=== PATIENT | female | born 1985 | race Caucasian/White ===

== ENCOUNTER 2017-04-01 13:29 | Emergency (ER) | payer MEDICAID ==
[~2017-04-01] VITALS: Ht 157.5 cm; Wt 79.3 kg
[~2017-04-01 13:29] MED LIST: SERT50TA PO; TRAZ100T15 PO
[2017-04-01 13:31] VITALS: BP 154/93
[2017-04-01] MEDS ORDERED: CEFTRIAXONE PMX 1GM/50ML 50 ML IVPB ONE (14:00)
[2017-04-01] MEDS ORDERED: SODIUM CHLORIDE FLUSH 10ML SYR IVF ONE (14:00)
[2017-04-01] MEDS ORDERED: ONDANSETRON 2MG/ML, 2ML IVPush ONE (14:00)
[2017-04-01] MEDS ORDERED: HYDROmorphone 1 MG/ML, 1ML ONE ×3 (14:02→16:02)
[2017-04-01] MEDS ORDERED: ONDANSETRON 2MG/ML, 2ML ONE (14:02)
[2017-04-01] MEDS ORDERED: CEFTRIAXONE PMX 1GM/50ML 50 ML ONE (14:02)
[2017-04-01] MEDS: HYDROmorphone 1 MG/ML, 1ML IVPush PRN ×2 (14:15→15:23)
[2017-04-01 14:38] LABS: BLOOD UREA NITROGEN 5 mg/dL (7-18)
[2017-04-01] MEDS ORDERED: BACITRACIN ZINC OINT 500U/GM, 0.9 GM ONE ×2 (14:53)
[2017-04-01] MEDS ORDERED: HYDROmorphone 1 MG/ML, 1ML IVPush PRN (15:00)
[2017-04-01] MEDS ORDERED: BACITRACIN OINT 500U/GM, 15 GM TP ONE (15:00)
[2017-04-01] MEDS ORDERED: POTASSIUM CHLORIDE 20 MEQ TAB.ER.PRT PO ONE (15:30)
[2017-04-01] MEDS ORDERED: POTASSIUM CHLORIDE 20 MEQ TAB.ER.PRT ONE (16:02)
== END 2017-04-01 17:11 | disposition home or self-care (01) ==
LOC: ED 17:01
DX: L01.01 Non-bullous impetigo (principal); F15.10 Other stimulant abuse, uncomplicated
CPT/HCPCS: 36415; 80048; 82040; 83605; 85025; 87040; 96365; 96375; 96376; 99284; J0696; J1170; J2405

== ENCOUNTER 2017-04-20 23:21 | Emergency (ER) | payer MEDICAID ==
[~2017-04-20] VITALS: Ht 167.6 cm; Wt 90.0 kg
[2017-04-20] MEDS ORDERED: SODIUM CHLORIDE 0.9% 1,000ML IVBOLUS ONE (23:30)
[2017-04-21] MEDS ORDERED: ZIPRASIDONE 20 MG INJ IM ONE ×4 (00:30→01:00)
[2017-04-21] MEDS ORDERED: DIPHENHYDRAMINE 50 MG/ML, 1ML ONE (00:58)
[2017-04-21] MEDS ORDERED: LORazepam 2 MG/ML, 1ML ONE (00:59)
[2017-04-21] MEDS ORDERED: LORazepam 2 MG/ML, 1ML IM ONE (01:00)
[2017-04-21 01:51] LABS: HEMATOCRIT 44.7 % (34.6-47.8); HEMOGLOBIN 14.4 g/dL (11.7-16.4); WHITE BLOOD COUNT 6.5 x10^3/uL (3.4-10)
[2017-04-21 02:01] LABS: ASPARTATE AMINO TRANSFERASE 22 U/L (15-37); BLOOD UREA NITROGEN 2 mg/dL (7-18)
[2017-04-21 02:08] LABS: ACETAMINOPHEN < 2 mcg/mL (10-30)
[2017-04-21 05:32] VITALS: BP 118/78
== END 2017-04-21 06:07 | disposition home or self-care (01) ==
LOC: ED 23:59
DX: F19.150 Other psychoactive substance abuse with psychoactive substance-induced psychotic disorder with delusions (principal); F22 Delusional disorders; F23 Brief psychotic disorder; F31.9 Bipolar disorder, unspecified; S00.81XA Abrasion of other part of head, initial encounter; X58.XXXA Exposure to other specified factors, initial encounter; Y93.89 Activity, other specified; Y99.8 Other external cause status; Y92.89 Other specified places as the place of occurrence of the external cause
CPT/HCPCS: 36415; 70450; 80053; 80307; 80329; 84703; 85025; 96372; 99291; J2060; J3486; G0480

== ENCOUNTER 2018-04-10 10:03 | Emergency (ER) | payer MEDICAID ==
[~2018-04-10] VITALS: Ht 157.5 cm; Wt 96.5 kg
[~2018-04-10 10:03] MED LIST changes: +TRAZ-137 PO; -TRAZ100T15 PO
[2018-04-10 10:26] VITALS: BP 119/75
[2018-04-10 12:06] LABS: MICROSCOPIC NOT IND
[2018-04-10 12:12] LABS: BASOPHILS # (AUTO) 0.02 x10^3/uL (0-0.1); BASOPHILS % (AUTO) 0 % (0-1); EOSINOPHILS # (AUTO) 0.09 x10^3/uL (0-0.4); EOSINOPHILS % (AUTO) 1 % (1-7); LYMPHOCYTES # (AUTO) 2.09 x10^3/uL (1-3.4); LYMPHOCYTES % (AUTO) 18 % (22-44); MD NO; MEAN CORPUSCULAR HEMOGLOBIN 27.8 pg (27.0-34.8); MEAN CORPUSCULAR HGB CONC 33.2 g/dL (32.4-35.8); MEAN CORPUSCULAR VOLUME 83.7 fL (80-100); MEAN PLATELET VOLUME 10.1 fL (7.4-10.4); MONOCYTES # (AUTO) 0.24 x10^3/uL (0.2-0.8); MONOCYTES % (AUTO) 2 % (2-9); NEUTROPHILS # (AUTO) 9.08 x10^3/uL (1.8-6.8); NEUTROPHILS % (AUTO) 79 % (42-75); PLATELET COUNT 275 x10^3/uL (130-400); RED BLOOD COUNT 4.49 x10^6/uL (3.82-5.3); RED CELL DISTRIBUTION WIDTH 14.8 % (9.6-15.2)
[2018-04-10 12:15] LABS: ALANINE AMINOTRANSFERASE 33 U/L (12-78); ALBUMIN 3.2 g/dL (3.4-5.0); ANION GAP 10 mmol/L (5-15); CALCIUM 8.3 mg/dL (8.5-10.1); CHLORIDE 106 mmol/L (98-107); CREATININE 0.72 mg/dL (0.55-1.02)
[2018-04-10 12:20] LABS: ALKALINE PHOSPHATASE 102 U/L (45-117); BILIRUBIN,TOTAL 0.2 mg/dL (0.2-1.0); TOTAL PROTEIN 6.9 g/dL (6.4-8.2)
== END 2018-04-10 13:49 | disposition home or self-care (01) ==
LOC: ED 13:43
DX: R19.7 Diarrhea, unspecified (principal); R11.2 Nausea with vomiting, unspecified
CPT/HCPCS: 36415; 74021; 80053; 81003; 83690; 84703; 85025; 99285

== ENCOUNTER 2018-10-19 12:48 | Emergency (ER) | payer MEDICAID ==
[~2018-10-19] VITALS: Ht 157.5 cm; Wt 100.7 kg
[2018-10-19 13:02] VITALS: BP 131/80
[2018-10-19 13:33] LABS: BASOPHILS # (AUTO) 0.03 x10^3/uL (0-0.1); BASOPHILS % (AUTO) 0 % (0-1); EOSINOPHILS # (AUTO) 0.18 x10^3/uL (0-0.4); EOSINOPHILS % (AUTO) 2 % (1-7); LYMPHOCYTES # (AUTO) 2.42 x10^3/uL (1-3.4); LYMPHOCYTES % (AUTO) 22 % (22-44); MD NO; MEAN CORPUSCULAR HEMOGLOBIN 27.7 pg (27.0-34.8); MEAN CORPUSCULAR HGB CONC 33.4 g/dL (32.4-35.8); MEAN CORPUSCULAR VOLUME 82.9 fL (80-100); MEAN PLATELET VOLUME 10.2 fL (7.4-10.4); MONOCYTES # (AUTO) 0.15 x10^3/uL (0.2-0.8); MONOCYTES % (AUTO) 1 % (2-9); NEUTROPHILS # (AUTO) 8.23 x10^3/uL (1.8-6.8); NEUTROPHILS % (AUTO) 75 % (42-75); PLATELET COUNT 294 x10^3/uL (130-400); RED BLOOD COUNT 4.86 x10^6/uL (3.82-5.3); RED CELL DISTRIBUTION WIDTH 15.3 % (9.6-15.2)
[2018-10-19 13:42] LABS: ALANINE AMINOTRANSFERASE 40 U/L (12-78); ALBUMIN 3.5 g/dL (3.4-5.0); ANION GAP 7 mmol/L (5-15); CALCIUM 8.5 mg/dL (8.5-10.1); CHLORIDE 106 mmol/L (98-107); CREATININE 0.84 mg/dL (0.55-1.02)
[2018-10-19 13:42] LABS: HCG UR SG 1.008 (1.003-1.030); MICROSCOPIC AUTO
[2018-10-19 13:43] LABS: CULTURE INDICATED? YES
[2018-10-19 13:44] LABS: ALKALINE PHOSPHATASE 125 U/L (45-117); BILIRUBIN,TOTAL 0.2 mg/dL (0.2-1.0); TOTAL PROTEIN 7.4 g/dL (6.4-8.2)
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
[2018-10-19] MEDS ORDERED: OXYcodone/APAP 5/325MG TABLET ONE (16:39)
--- NOTE | 2018-10-19 17:01 | NUR ---
Patient/Caregiver given discharge instructions and they have confirmed that they understand the instructions. Patient ambulatory with steady gait.
== END 2018-10-19 17:02 | disposition home or self-care (01) ==
LOC: ED 16:41
DX: B02.9 Zoster without complications (principal); F17.200 Nicotine dependence, unspecified, uncomplicated
CPT/HCPCS: 36415; 80053; 81001; 81025; 85025; 87086; 99283

== ENCOUNTER 2018-10-23 16:59 | Inpatient (IN) | payer MEDICAID ==
[~2018-10-23] VITALS: Ht 157.5 cm; Wt 110.4 kg
[2018-10-23] MEDS ORDERED: NYSTATIN OINT 15GM TP ONE (17:46)
[2018-10-23] MEDS ORDERED: AMPICILLIN/SULBACTAM 3 GM in SODIUM CHLORIDE 0.9% 100 ML IV ONE (17:46)
[2018-10-23] MEDS ORDERED: TRIAMCINOLONE CRM 0.1%, 15GM TP ONE (17:46)
[2018-10-23] MEDS ORDERED: SODIUM CHLORIDE FLUSH 10ML SYR IVF ONE (18:00)
[2018-10-23] MEDS ORDERED: ONDANSETRON 2MG/ML, 2ML IVPush ONE (18:00)
[2018-10-23] MEDS ORDERED: HYDROmorphone 1 MG/ML, 1ML IVPush PRN (18:00)
[2018-10-23] MEDS ORDERED: HYDROmorphone 1 MG/ML, 1ML ONE (18:18)
[2018-10-23] MEDS ORDERED: ONDANSETRON 2MG/ML, 2ML ONE (18:18)
[2018-10-23 18:37] LABS: ALBUMIN 3.5 g/dL (3.4-5.0); ANION GAP 7 mmol/L (5-15); BASOPHILS % (AUTO) 0 % (0-1); CALCIUM 8.5 mg/dL (8.5-10.1); CHLORIDE 107 mmol/L (98-107); EOSINOPHILS # (AUTO) 0.14 x10^3/uL (0-0.4); EOSINOPHILS % (AUTO) 1 % (1-7); LYMPHOCYTES % (AUTO) 14 % (22-44); MD NO; MEAN CORPUSCULAR HEMOGLOBIN 27.6 pg (27.0-34.8); MEAN CORPUSCULAR HGB CONC 33.1 g/dL (32.4-35.8); MEAN CORPUSCULAR VOLUME 83.2 fL (80-100); MEAN PLATELET VOLUME 10.5 fL (7.4-10.4); MONOCYTES # (AUTO) 0.29 x10^3/uL (0.2-0.8); MONOCYTES % (AUTO) 2 % (2-9); NEUTROPHILS # (AUTO) 10.01 x10^3/uL (1.8-6.8); NEUTROPHILS % (AUTO) 82 % (42-75); PLATELET COUNT 276 x10^3/uL (130-400); RED BLOOD COUNT 4.53 x10^6/uL (3.82-5.3); RED CELL DISTRIBUTION WIDTH 15.3 % (9.6-15.2)
[2018-10-23 18:38] LABS: CREATININE 0.81 mg/dL (0.55-1.02)
[2018-10-23] MEDS ORDERED: BISACODYL 10 MG SUPP PR PRN (19:00)
[2018-10-23] MEDS ORDERED: ONDANSETRON ODT 4 MG PO PRN (19:00)
[2018-10-23] MEDS ORDERED: POLYETHYLENE GLYCOL 17 GM PACKET PO PRN (19:00)
[2018-10-23 19:18] VITALS: BP 120/79
[2018-10-23] MEDS: NICOTINE 21 MG/24 HR PATCH.TD24 TD SCH (19:39)
[2018-10-23] MEDS: HEPARIN 5,000 UNITS/ML, 1ML SQ SCH (19:39)
[2018-10-23 19:50] LABS: HEMOGLOBIN A1C 6.5 % (4.2-6.3)
[2018-10-23] MEDS: FAMCICLOVIR 500 MG TABLET PO SCH (20:24)
[2018-10-23] MEDS: KETOROLAC 30 MG/1 ML IV PRN (20:25)
[2018-10-23] MEDS: SODIUM CHLORIDE FLUSH 10ML SYR IVF SCH (20:26)
[2018-10-23] MEDS: metFORMIN 500 MG TABLET PO SCH (22:26)
[2018-10-23] MEDS: OXCARBAZEPINE 150 MG TABLET PO SCH (22:26)
[2018-10-23] MEDS: NYSTATIN TOPICAL POWDER 15GM TP SCH (22:27)
[2018-10-23] MEDS: ZIPRASIDONE 40MG CAPSULE PO SCH (22:27)
[2018-10-23] MEDS ORDERED: PROMETHAZINE 25 MG/ML, 1ML IM PRN (23:00)
[2018-10-23] MEDS: CALCIUM CARBONATE 500 MG TAB.CHEW PO PRN (23:12)
[2018-10-23] MEDS: ACETAMINOPHEN 325 MG TABLET PO PRN (23:15)
[2018-10-24] MEDS: AMPICILLIN/SULBACTAM 3 GM in SODIUM CHLORIDE 0.9% 100 ML IV SCH ×4 (00:43→19:09)
[2018-10-24 01:21] VITALS: BP 104/66
[2018-10-24] MEDS: KETOROLAC 30 MG/1 ML IV PRN ×4 (02:45→22:54)
[2018-10-24] MEDS: HEPARIN 5,000 UNITS/ML, 1ML SQ SCH ×3 (05:39→21:26)
[2018-10-24] MEDS: ACETAMINOPHEN 325 MG TABLET PO PRN (05:39)
[2018-10-24] MEDS: FAMCICLOVIR 500 MG TABLET PO SCH ×3 (05:39→21:26)
[2018-10-24 05:48] LABS: BASOPHILS # (AUTO) 0.04 x10^3/uL (0-0.1); BASOPHILS % (AUTO) 1 % (0-1); EOSINOPHILS # (AUTO) 0.17 x10^3/uL (0-0.4); EOSINOPHILS % (AUTO) 2 % (1-7); LYMPHOCYTES # (AUTO) 1.89 x10^3/uL (1-3.4); LYMPHOCYTES % (AUTO) 21 % (22-44); MD NO; MEAN CORPUSCULAR HEMOGLOBIN 27.9 pg (27.0-34.8); MEAN CORPUSCULAR HGB CONC 33.5 g/dL (32.4-35.8); MEAN PLATELET VOLUME 10.3 fL (7.4-10.4); MONOCYTES % (AUTO) 5 % (2-9); NEUTROPHILS # (AUTO) 6.42 x10^3/uL (1.8-6.8); NEUTROPHILS % (AUTO) 72 % (42-75); PLATELET COUNT 251 x10^3/uL (130-400); RED BLOOD COUNT 4.19 x10^6/uL (3.82-5.3); RED CELL DISTRIBUTION WIDTH 15.2 % (9.6-15.2)
[2018-10-24 06:09] LABS: CHLORIDE 105 mmol/L (98-107)
[2018-10-24 06:18] LABS: ALANINE AMINOTRANSFERASE 40 U/L (12-78); ALBUMIN 2.9 g/dL (3.4-5.0); ALKALINE PHOSPHATASE 107 U/L (45-117); ANION GAP 7 mmol/L (5-15); BILIRUBIN,TOTAL 0.2 mg/dL (0.2-1.0); CALCIUM 8.8 mg/dL (8.5-10.1); CREATININE 0.68 mg/dL (0.55-1.02); TOTAL PROTEIN 6.5 g/dL (6.4-8.2)
[2018-10-24 08:40] VITALS: BP 112/73
[2018-10-24] MEDS: SODIUM CHLORIDE FLUSH 10ML SYR IVF SCH ×2 (08:55→21:27)
[2018-10-24] MEDS: OXCARBAZEPINE 150 MG TABLET PO SCH ×2 (08:56→21:26)
[2018-10-24] MEDS: ZIPRASIDONE 40MG CAPSULE PO SCH ×2 (08:56→21:26)
[2018-10-24] MEDS: metFORMIN 500 MG TABLET PO SCH ×2 (08:56→16:36)
[2018-10-24] MEDS: BUPROPION 75 MG TABLET PO SCH (08:57)
[2018-10-24] MEDS: SENNA/DOCUSATE TABLET PO SCH (08:57)
[2018-10-24] MEDS: NYSTATIN TOPICAL POWDER 15GM TP SCH ×3 (09:20→21:26)
[2018-10-24 12:00] VITALS: BP 112/75
[2018-10-24] MEDS: OXYcodone/APAP 5/325MG TABLET PO PRN ×2 (13:11→19:16)
[2018-10-24] MEDS: DOXYCYCLINE 100 MG in DEXTROSE 5% 250 ML IV SCH (13:57)
[2018-10-24] MEDS: NICOTINE 21 MG/24 HR PATCH.TD24 TD SCH (19:09)
[2018-10-24 20:45] VITALS: BP 119/77
[2018-10-24] MEDS: CALCIUM CARBONATE 500 MG TAB.CHEW PO PRN (22:59)
[2018-10-24] MEDS ORDERED: BUPR150T8 PO (23:11)
[2018-10-24] MEDS ORDERED: ZIPR80CA2 PO (23:13)
[2018-10-24] MEDS ORDERED: OXCA300T3 PO (23:14)
[2018-10-25 00:30] VITALS: BP 119/72
[2018-10-25] MEDS: AMPICILLIN/SULBACTAM 3 GM in SODIUM CHLORIDE 0.9% 100 ML IV SCH ×2 (01:04→06:33)
[2018-10-25] MEDS: DOXYCYCLINE 100 MG in DEXTROSE 5% 250 ML IV SCH (01:53)
[2018-10-25] MEDS: FAMCICLOVIR 500 MG TABLET PO SCH (05:43)
[2018-10-25] MEDS: HEPARIN 5,000 UNITS/ML, 1ML SQ SCH (05:44)
[2018-10-25] MEDS: OXYcodone/APAP 5/325MG TABLET PO PRN ×2 (05:46→13:13)
[2018-10-25] MEDS: KETOROLAC 30 MG/1 ML IV PRN (05:50)
[2018-10-25 07:31] LABS: HCT (SEDRATE) 35.5 % (34.6-47.8)
[2018-10-25 07:46] VITALS: BP 123/81
[2018-10-25] MEDS: ZIPRASIDONE 40MG CAPSULE PO SCH (10:35)
[2018-10-25] MEDS: OXCARBAZEPINE 150 MG TABLET PO SCH (10:35)
[2018-10-25] MEDS: SENNA/DOCUSATE TABLET PO SCH (10:35)
[2018-10-25] MEDS: BUPROPION 75 MG TABLET PO SCH (10:35)
[2018-10-25] MEDS: SODIUM CHLORIDE FLUSH 10ML SYR IVF SCH (10:35)
[2018-10-25] MEDS: NYSTATIN TOPICAL POWDER 15GM TP SCH (10:35)
[2018-10-25] MEDS: metFORMIN 500 MG TABLET PO SCH (10:35)
[2018-10-25] MEDS ORDERED: AMOX1TAB64 PO (12:25)
[2018-10-25] MEDS ORDERED: DOXY100C2 PO (12:25)
[2018-10-25] MEDS ORDERED: ACET325T14 PO (12:25)
[2018-10-25] MEDS ORDERED: FAMC500T33 PO (12:25)
[2018-10-25] MEDS ORDERED: NYST60PO TP (12:25)
== END 2018-10-25 14:30 | disposition home or self-care (01) | DRG 600 ==
LOC: ED 17:55 → EDIP 18:36 → 3NE 19:00
PROVIDERS: ADMIT Internal Medicine; ATTEND Internal Medicine
DX: N61.0 Mastitis without abscess (principal); Z68.41 Body mass index [BMI] 40.0-44.9, adult; Z91.19 Patient's noncompliance with other medical treatment and regimen; B37.9 Candidiasis, unspecified; E11.9 Type 2 diabetes mellitus without complications; E66.01 Morbid (severe) obesity due to excess calories; F17.210 Nicotine dependence, cigarettes, uncomplicated; F20.9 Schizophrenia, unspecified; F31.9 Bipolar disorder, unspecified; I10 Essential (primary) hypertension; B02.9 Zoster without complications
CPT/HCPCS: 36415; 76642; 80048; 80053; 82040; 82962; 83036; 83605; 84145; 85025; 85651; 86140; 87040; 87070; 87075; 87205; 96374; 96375; 99285; G0378; J0295; J1170; J1644; J1885; J2405; J7060; Q0162

== ENCOUNTER 2019-01-29 20:50 | Emergency (ER) | payer MEDICAID ==
[~2019-01-29] VITALS: Ht 157.5 cm; Wt 97.7 kg
[~2019-01-29 20:50] MED LIST changes: +ACET325T14 PO; +AMOX1TAB64 PO; +BUPR150T8 PO; +DOXY100C2 PO; +FAMC500T33 PO; +NYST60PO TP; +OXCA300T3 PO; +ZIPR80CA2 PO
[2019-01-29 20:51] VITALS: BP 142/75
[2019-01-29] MEDS ORDERED: IBUPROFEN 200 MG TABLET ONE (21:24)
[2019-01-29] MEDS ORDERED: IBUPROFEN 600 MG TABLET PO ONE (21:30)
== END 2019-01-29 21:30 | disposition home or self-care (01) ==
LOC: ED 21:24
DX: M79.672 Pain in left foot (principal); M79.671 Pain in right foot; Z72.9 Problem related to lifestyle, unspecified; F31.9 Bipolar disorder, unspecified; F20.9 Schizophrenia, unspecified; Z90.49 Acquired absence of other specified parts of digestive tract; F17.210 Nicotine dependence, cigarettes, uncomplicated
CPT/HCPCS: 99282

== ENCOUNTER 2019-01-30 01:03 | Emergency (ER) | payer MEDICAID ==
[~2019-01-30] VITALS: Ht 157.5 cm; Wt 98.3 kg
--- NOTE | 2019-01-30 01:25 | NUR ---
PT. CONTINUALLY STATING "SOMETHING IS WRONG WITH MY HEART". PT. TAKING TO HERSELF. DEACON GUTIÉRREZ WAS IN TO EVAL PT. AND DISCUSS POC.
--- NOTE | 2019-01-30 01:52 | NUR ---
FSBS CHECKED PER ORDER(127). PT. CONTINUES TO RAMBLE TO SELF. STATING "CHELITA YOU NEED TO BE IN THE HOSPITAL, YOU'RE HEART ISN'T WORKING, YOU'RE HEART IS TOO SLOW". PT. OFFERED REASSURANE THAT HER HEART IS WORKING. EKG HAD BEEN DONE IN TRIAGE. PT. VERBALIZED UNDERSTANDING OF THIS.
[2019-01-30 01:58] VITALS: BP 154/101
== END 2019-01-30 02:11 | disposition home or self-care (01) ==
LOC: ED 01:54
DX: F41.1 Generalized anxiety disorder (principal); F17.200 Nicotine dependence, unspecified, uncomplicated; E11.9 Type 2 diabetes mellitus without complications
CPT/HCPCS: 93005; 99283

== ENCOUNTER 2019-02-18 08:50 | Emergency (ER) | payer MEDICAID ==
[~2019-02-18] VITALS: Ht 157.5 cm; Wt 91.0 kg
--- NOTE | 2019-02-18 09:04 | NUR ---
PT IN FROM [facility]. WHEN ASKED WHY SHE IS HERE PT STATES SHE IS "TRYING TO SAVE HER NEICES LIFE". WHEN ASKED HER NAME SHE STATES "WHO DO I LOOK LIKE?" PT DENIES DRUG USE, SI/SA, CP, SOB, N/V. PT IS ASKING FOR SOME MEDICATION FOR SLEEP, STATES "SHE HASNT SLEPT IN A FEW DAYS" "COULD YOU JUST GET HER SOME MEDS SO SHE CAN SLEEP" PT TALKING TO HER NEICE WHO IS NOT IN THE ROOM. ERMD IN TO NEREIDA PT. BREATHLYZER DONE 0.00
--- NOTE | 2019-02-18 09:34 | NUR ---
PT WITH HX OF PARANOID SCIZOPHRENIA, METH AUSE. PT GETTING AGITATED IN ROOM, HALLUCINATING IN ROOM, TALKING WITH NEICE WHO IS NOT IN ROOM. RN TO UPDATE ERMD
[2019-02-18] MEDS ORDERED: ZIPRASIDONE 20 MG INJ IM ONE ×2 (09:41→10:00)
--- NOTE | 2019-02-18 09:53 | NUR ---
PT BECOMING INCREASINGLY AGITATED, PT ATTEMPTING TO LEAVE, VOLCANOLOGY TEACHER BLOCKING PT FROM DOOR, PT STATING "IM JUST GOING TO WALK OUT OF HERE" SECURITY CALLED TO BEDSIDE, ERMD UPDATED, PRN LORRI ORDERED AND GIVEN.
[2019-02-18] MEDS ORDERED: LORazepam 1MG TABLET PO ONE ×2 (10:00→17:00)
[2019-02-18 10:06] LABS: BASOPHILS # (AUTO) 0.01 x10^3/uL (0-0.1); BASOPHILS % (AUTO) 0 % (0-1); EOSINOPHILS # (AUTO) 0.02 x10^3/uL (0-0.4); EOSINOPHILS % (AUTO) 0 % (1-7); LYMPHOCYTES # (AUTO) 1.32 x10^3/uL (1-3.4); LYMPHOCYTES % (AUTO) 15 % (22-44); MD NO; MEAN CORPUSCULAR HEMOGLOBIN 27.5 pg (27.0-34.8); MEAN CORPUSCULAR HGB CONC 32.5 g/dL (32.4-35.8); MEAN CORPUSCULAR VOLUME 84.4 fL (80-100); MEAN PLATELET VOLUME 10.9 fL (7.4-10.4); MONOCYTES # (AUTO) 0.39 x10^3/uL (0.2-0.8); MONOCYTES % (AUTO) 4 % (2-9); NEUTROPHILS # (AUTO) 7.34 x10^3/uL (1.8-6.8); NEUTROPHILS % (AUTO) 81 % (42-75); PLATELET COUNT 239 x10^3/uL (130-400); RED BLOOD COUNT 4.98 x10^6/uL (3.82-5.3); RED CELL DISTRIBUTION WIDTH 15.6 % (9.6-15.2)
[2019-02-18 10:21] LABS: ALBUMIN 3.7 g/dL (3.4-5.0); ANION GAP 10 mmol/L (5-15); CALCIUM 8.7 mg/dL (8.5-10.1); CHLORIDE 101 mmol/L (98-107)
[2019-02-18 10:22] LABS: CREATININE 0.75 mg/dL (0.55-1.02)
--- NOTE | 2019-02-18 10:25 | NUR ---
CALLED [facility] @1020 LEFT MESSAGE WITH PTS NAME, , MEDICAID HPN #
--- NOTE | 2019-02-18 10:39 | NUR ---
REC'D CALL BACK FROM DANIAL TOVAR. PT IS HPN EXPANSION AND S/B EVALUATED BY [facility]
--- NOTE | 2019-02-18 10:51 | NUR ---
CALLED [facility], SPOKE WITH HEEL STIFFENER TO BE NOTIFIED
[2019-02-18] MEDS ORDERED: POTASSIUM CHLORIDE 20 MEQ TAB.ER.PRT PO ONE (11:00)
--- NOTE | 2019-02-18 11:04 | NUR ---
DR OCONNOR WITH S CALLED AND GIVEN AN UPDATE ON PT STATUS, STILL AWAITING URINE SAMPLE FOR DOA. WILL CALL TO UPDATE ONCE OBTAINED
--- NOTE | 2019-02-18 11:51 | NUR ---
Pt sleeping at this time. Resp even and unlabored. Sitter at doorway.
[2019-02-18] MEDS ORDERED: POTASSIUM CHLORIDE 20 MEQ TAB.ER.PRT ONE (13:28)
--- NOTE | 2019-02-18 13:38 | NUR ---
DOA COLLECTED, PT MEDICATED PER MAR. NO DISTRESS NOTED
--- NOTE | 2019-02-18 13:44 | NUR ---
PT GIVEN MEAL TRAY AND MEDS. PT UP TO BR AND DOA COLLECTED AND WALKED TO LAB. PT WANTING TO GO HOME AND WANTS TO SPEAK WITH DOCTOR.
[2019-02-18 13:50] LABS: HCG UR SG 1.014 (1.003-1.030)
[2019-02-18 14:05] LABS: AMPHETAMINE SCREEN, URINE Positive (Negative); BARBITURATE SCREEN, URINE Negative (Negative); BENZODIAZEPINE SCREEN, URINE Negative (Negative); CANNABINOID SCREEN, URINE Negative (Negative); COCAINE SCREEN, URINE Negative (Negative); METHADONE SCREEN, URINE Negative (Negative); OPIATE SCREEN, URINE Negative (Negative)
--- NOTE | 2019-02-18 15:14 | NUR ---
pt resting in bed and sitter outside of room .
--- NOTE | 2019-02-18 16:10 | NUR ---
REPORT TO ISAAC MARTINEZ
--- NOTE | 2019-02-18 16:15 | NUR ---
PT MOVED TO ROOM 2. SUPPLIES SECURED BEHIND PULL-DOWN DOOR FOR SAFETY. SITTER OUTSIDE ROOM. PT TALKING TO SELF IN 3RD PERSON. PT COOPERATIVE AT THIS TIME
--- NOTE | 2019-02-18 16:45 | NUR ---
DR OCONNOR NOTIFIED OF URINE TOX RESULTS PT POSITIVE FOR METH. PT NO LONGER HALLUCINATING AND IS REQUESTING TO LEAVE. DR. OCONNOR VERBALIZES THAT THE PATIENT IS A KNOWN REPEAT METH USER AND PRESENTS WITH HALLUCINATIONS AND AGGRESSION TO THE ED AND ONCE THE METH WEARS OFF SHE IS BETTER AND CAN BE D/C. ED MD INFORMED.
[2019-02-18] MEDS ORDERED: LORazepam 1MG TABLET ONE (17:24)
[2019-02-18 17:39] VITALS: BP 132/87
--- NOTE | 2019-02-18 17:54 | NUR ---
PT GIVEN DISCHARGE INSTRUCTIONS. CONTINUES TO TALK TO HERSELF IN THIRD PERSON BUT A&O. PT WANTED TO KNOW WHY SHE WAS HEARING VOICES AND EXPLAINED TO HER THAT SHE SHOULD NOT USE METH BECAUSE THAT CAUSES PSYCHOSIS. PT GIVEN HER CLOTHES AND AMBULATED TO DISCHARGE DESK
== END 2019-02-18 17:58 | disposition home or self-care (01) ==
LOC: ED 10:03
DX: F15.150 Other stimulant abuse with stimulant-induced psychotic disorder with delusions (principal); E87.6 Hypokalemia; R44.3 Hallucinations, unspecified; F17.200 Nicotine dependence, unspecified, uncomplicated; E11.9 Type 2 diabetes mellitus without complications; F32.9 Major depressive disorder, single episode, unspecified
CPT/HCPCS: 36415; 80048; 80307; 81025; 82040; 85025; 96372; 99284; J3486

== ENCOUNTER 2019-02-19 08:29 | Emergency (ER) | payer MEDICAID ==
--- NOTE | 2019-02-19 08:34 | NUR ---
On pt arrival to ED pt states she does not want to be seen. Pt is A&Ox4, denies SI/HI. Pt fully dressed, ambulatory with steady gait around unit. Pt given water per request. Pt given bus pass for transport home. Pt ambulatory out of unit with steady gait, NADN.
== END 2019-02-19 08:39 | disposition left against medical advice (07) ==
LOC: ED 08:33
DX: Z53.21 Procedure and treatment not carried out due to patient leaving prior to being seen by health care provider (principal)

== ENCOUNTER 2019-02-24 12:59 | Emergency (ER) | payer MEDICAID ==
--- NOTE | 2019-02-24 13:06 | NUR ---
ASH MARTINS FROM HOME INITIALLY FOR ANXIETY. UPON ARRIVAL TO ER PT STATES NO SI/HI AND THAT SHE WOULD LIKE TO LEAVE AND DOES NOT WANT TO BE SEEN. CHARGE INFORMED, BUS PASS PROVIDED. PT STATES, "I KNOW HOW TO MAKE MYSELF FEEL BETTER, I NEED TO GO HOME AND TAKE MY MEDS." ASKED PT IF SHE HAS ACCESS TO HER MEDS AT HOME, PT STATES YES. A&OX4. VSS.
== END 2019-02-24 13:10 | disposition left against medical advice (07) ==
LOC: ED 13:04
DX: Z53.21 Procedure and treatment not carried out due to patient leaving prior to being seen by health care provider (principal)

== ENCOUNTER 2019-02-24 13:14 | Emergency (ER) | payer MEDICAID ==
[~2019-02-24] VITALS: Ht 157.5 cm; Wt 91.0 kg
[2019-02-24 13:17] VITALS: BP 126/85
--- NOTE | 2019-02-24 13:25 | NUR ---
PT STANDING OUTSIDE ROOM. PT STATING "I JUST WANT TO GO. I DON'T WANT TO BE HERE." PT A&OX4. PT WAS JUST BROUGHT IN BY EMS AND WANTED TO LEAVE. PT AMBULATORY WITH STEADY GAIT. PT LEFT WITH ALL PERSONAL BELONGINGS.
== END 2019-02-24 13:30 | disposition left against medical advice (07) ==
LOC: ED 13:24
DX: R11.0 Nausea (principal); Z53.21 Procedure and treatment not carried out due to patient leaving prior to being seen by health care provider

== ENCOUNTER 2019-03-01 16:28 | Emergency (ER) | payer MEDICAID ==
[~2019-03-01] VITALS: Ht 157.5 cm; Wt 89.0 kg
[2019-03-01 17:06] LABS: BASOPHILS # (AUTO) 0.05 x10^3/uL (0-0.1); BASOPHILS % (AUTO) 0 % (0-1); EOSINOPHILS # (AUTO) 0.04 x10^3/uL (0-0.4); EOSINOPHILS % (AUTO) 0 % (1-7); LYMPHOCYTES # (AUTO) 2.56 x10^3/uL (1-3.4); LYMPHOCYTES % (AUTO) 19 % (22-44); MD NO; MEAN CORPUSCULAR HEMOGLOBIN 28.1 pg (27.0-34.8); MEAN CORPUSCULAR HGB CONC 32.8 g/dL (32.4-35.8); MEAN CORPUSCULAR VOLUME 85.6 fL (80-100); MONOCYTES # (AUTO) 0.67 x10^3/uL (0.2-0.8); MONOCYTES % (AUTO) 5 % (2-9); NEUTROPHILS # (AUTO) 10.15 x10^3/uL (1.8-6.8); NEUTROPHILS % (AUTO) 75 % (42-75); PLATELET COUNT 281 x10^3/uL (130-400); RED BLOOD COUNT 5.13 x10^6/uL (3.82-5.3); RED CELL DISTRIBUTION WIDTH 15.9 % (9.6-15.2)
[2019-03-01 17:19] LABS: ALBUMIN 4.3 g/dL (3.4-5.0); ANION GAP 10 mmol/L (5-15); CALCIUM 9.3 mg/dL (8.5-10.1); CHLORIDE 104 mmol/L (98-107); SALICYLATE LEVEL 4.5 mg/dL (2.8-20.0)
[2019-03-01 17:45] VITALS: BP 150/84
--- NOTE | 2019-03-01 17:50 | NUR ---
PT AMBULATORY TO ROOM 39 W/ C/O RAMBLING AND REQUESTING GEODON AND RAMBLING UNCOMPREHENSIBLE WORDS. PT MAKES STATEMENTS SUCH "PLEASE HELP ME I NEED SOME MEDICATION. YOU HEARD HER GIVE HER MEDICATION. PLEASE HELP ME". DENIES SI/HI. STATES SHE NEEDS HELP. PT RESTING ON GURNEY. MONITORS APPLIED. REQUESTING TO SEE ERP.
[2019-03-01] MEDS ORDERED: ZIPRASIDONE 20 MG INJ IM ONE ×2 (18:00→18:04)
[2019-03-01] MEDS ORDERED: LORazepam 2 MG/ML, 1ML IM PRN (18:00)
[2019-03-01] MEDS ORDERED: LORazepam 2 MG/ML, 1ML ONE (18:04)
--- NOTE | 2019-03-01 18:16 | NUR ---
PT MEDICATED PER OCT. PULSE OX REAPPLIED.
[2019-03-01] MEDS ORDERED: LORazepam 2 MG/ML, 1ML IM ONE (18:30)
--- NOTE | 2019-03-01 18:52 | NUR ---
PT AOX4. STEADY GAIT. NO LONGER RAMBLING. SPEAKING IN FULL SENTENCES. APOLOGETIC FOR BEHAVIOR. CONTINUES TO DENY SI/HI.
== END 2019-03-01 19:14 | disposition home or self-care (01) ==
LOC: ED 18:45
DX: F15.959 Other stimulant use, unspecified with stimulant-induced psychotic disorder, unspecified (principal); F17.200 Nicotine dependence, unspecified, uncomplicated; E11.9 Type 2 diabetes mellitus without complications; F32.9 Major depressive disorder, single episode, unspecified; F41.1 Generalized anxiety disorder
CPT/HCPCS: 36415; 71045; 80048; 80307; 82040; 84703; 85025; 96372; 99284; J2060; J3486

== ENCOUNTER 2019-04-08 14:33 | Emergency (ER) | payer MEDICAID ==
[~2019-04-08] VITALS: Ht 160 cm; Wt 80.0 kg
[2019-04-08 15:53] VITALS: BP 112/61
== END 2019-04-08 15:59 | disposition home or self-care (01) ==
LOC: ED 15:30
DX: N81.11 Cystocele, midline (principal); F17.200 Nicotine dependence, unspecified, uncomplicated; E11.9 Type 2 diabetes mellitus without complications
CPT/HCPCS: 81001; 81025; 87086; 99283

== ENCOUNTER 2019-04-16 02:20 | Emergency (ER) | payer MEDICAID ==
[~2019-04-16] VITALS: Ht 167.6 cm; Wt 73.0 kg
[2019-04-16 07:21] VITALS: BP 101/64
== END 2019-04-16 07:23 | disposition home or self-care (01) ==
LOC: ED 02:56
DX: T40.1X1A Poisoning by heroin, accidental (unintentional), initial encounter (principal); F10.129 Alcohol abuse with intoxication, unspecified; F11.10 Opioid abuse, uncomplicated; Z72.9 Problem related to lifestyle, unspecified; E11.9 Type 2 diabetes mellitus without complications; Z88.5 Allergy status to narcotic agent; Y92.9 Unspecified place or not applicable
CPT/HCPCS: 36415; 80053; 80307; 84703; 85025; 93005; 96374; 99284; J2310

== ENCOUNTER 2019-06-26 17:47 | Emergency (ER) | payer MEDICAID ==
[~2019-06-26] VITALS: Ht 160 cm; Wt 69.0 kg
[2019-06-26 17:55] VITALS: BP 105/67
--- NOTE | 2019-06-26 18:13 | NUR ---
PATIENT PRESENTS TO ED TODAY BECAUSE SHE "WANTS TO GO TO [facility]". PATIENT IN ROOM TALKING TO SELF, HAVING FLIGHT OF IDEAS, MD AT BEDSIDE, AWAITING FURTHER ORDERS. PATIENT ANXIOUS BUT COOPERATIVE AT THIS TIME. GARAGE DOORS DOWN, ALL SAFETY MEASURES IN PLACE, PERSONAL BELONGINGS (3 BAGS AND 1 BACK PACK) PLACED IN LOCKED STORAGE. SITTER REQUESTED.
[2019-06-26] MEDS ORDERED: LORazepam 1MG TABLET ONE (18:29)
[2019-06-26] MEDS ORDERED: LORazepam 1MG TABLET PO ONE (18:30)
[2019-06-26] MEDS ORDERED: HALOPERIDOL 5 MG/ML IM PRN (18:30)
--- NOTE | 2019-06-26 18:49 | NUR ---
PATIENT ADMITS TO METH USE TODAY. PATIENT REFUSING LABS AND TO BE TREATED AT THIS TIME, EDUCATED PATIENT, PATIENT STILL REFUSING, MD AWARE. PATIENT TO BE DC'D PER DR LO, PATIENT PROVIDED UNDERWEAR PER REQUEST, PATIENT PROVIDED PERSONAL BELONGINGS AND IS GETTING DRESSED AT THIS TIME.
--- NOTE | 2019-06-26 19:03 | NUR ---
All personal belongings given to patient, patient/caregiver given discharge instructions and they have confirmed that they understand the instructions. Patient ambulatory with steady gait to DC desk.
== END 2019-06-26 19:05 | disposition home or self-care (01) ==
LOC: ED 18:50
DX: F22 Delusional disorders (principal); E11.9 Type 2 diabetes mellitus without complications; F41.1 Generalized anxiety disorder; F31.9 Bipolar disorder, unspecified; Z90.49 Acquired absence of other specified parts of digestive tract
CPT/HCPCS: 99284

== ENCOUNTER 2019-08-29 07:57 | Emergency (ER) | payer MEDICAID ==
[~2019-08-29] VITALS: Ht 160 cm; Wt 69.2 kg
[2019-08-29 08:01] VITALS: BP 125/77
--- NOTE | 2019-08-29 08:52 | NUR ---
ERPA INTO SEEN PT AT THIS TIME PT HAS BEEN UP AMBULATORY TO BR APPEARS ANXIOUS
--- NOTE | 2019-08-29 09:06 | NUR ---
Pt was found smoking in the restroom, pt declining further evaluation, stating "I just want my prescriptions, you can't tell me what to do". DEACON Dye notified, pt given written & verbal DC, prescription & follow-up instructions. Addendum: 08/29/19 at 0908 by ANASTASIYA vat packer: Pt was found smoking in the restroom, pt declining further evaluation, stating "I just want my prescriptions, you can't tell me what to do". DEACON Dye notified, pt given written & verbal DC, prescription & follow-up instructions.
== END 2019-08-29 09:10 | disposition home or self-care (01) ==
LOC: ED 08:59
DX: J06.9 Acute upper respiratory infection, unspecified (principal); Z76.0 Encounter for issue of repeat prescription; E11.9 Type 2 diabetes mellitus without complications; Z90.89 Acquired absence of other organs
CPT/HCPCS: 93005; 99283

== ENCOUNTER 2019-08-29 21:46 | Emergency (ER) | payer MEDICAID ==
[~2019-08-29] VITALS: Ht 167.6 cm; Wt 68.2 kg
[2019-08-29 21:47] VITALS: BP 131/79
--- NOTE | 2019-08-29 21:51 | NUR ---
Pt refusing ekg done in triage. "i cant be doing those. i had one done today and my heart hasnt felt the same since... i dont trust them things, you cant make me do them." Pt educated on ekg and still refusing.
--- NOTE | 2019-08-29 22:06 | NUR ---
PT REPORTS SEEN HERE FOR COUGH, COUGH HAS NOT SUBSIDED WITH COUGH DROPS. "I DON'T NORMALLY CURSE TITA, BUT I WAS DOING THAT" C/O SUBSTERNAL CP, WORSE WITH DEEP BREATHS.
[2019-08-29] MEDS ORDERED: KETOROLAC 30 MG/1 ML IM ONE (22:30)
[2019-08-29] MEDS ORDERED: IBUPROFEN 800 MG TABLET ONE (22:43)
--- NOTE | 2019-08-29 22:48 | NUR ---
PT AMBULATES WELL INDEPENDENTLY TO BATHROOM. NAD NOTED AT THIS TIME.
[2019-08-29] MEDS ORDERED: IBUPROFEN 800 MG TABLET PO ONE (23:00)
--- NOTE | 2019-08-29 23:43 | NUR ---
PT UP FOR RECHECK.
--- NOTE | 2019-08-30 00:06 | NUR ---
Pt report from Jennie maurer. This rn to assume care of pt. Awaiting d/c paperwork. Pt yelling into hallway slurs at all staff walking by room.
[2019-08-30] MEDS ORDERED: hydrOXyzine 50MG TABLET ONE (00:10)
--- NOTE | 2019-08-30 00:40 | NUR ---
Patient/Caregiver given discharge instructions and they have confirmed that they understand the instructions. Patient ambulatory with steady gait.
== END 2019-08-30 00:42 | disposition home or self-care (01) ==
LOC: ED 22:14
DX: R05 Cough (principal); F15.129 Other stimulant abuse with intoxication, unspecified; E11.9 Type 2 diabetes mellitus without complications; F17.200 Nicotine dependence, unspecified, uncomplicated; Z72.9 Problem related to lifestyle, unspecified; Z72.89 Other problems related to lifestyle
CPT/HCPCS: 71046; 99283; Q0177

== ENCOUNTER 2019-10-05 12:14 | Emergency (ER) | payer MEDICAID ==
[~2019-10-05] VITALS: Ht 170.2 cm; Wt 70.0 kg
[~2019-10-05 12:14] MED LIST changes: -FAMC500T33 PO; +FAMC500T4 PO; -TRAZ-137 PO; +TRAZ-175 PO
--- NOTE | 2019-10-05 12:20 | NUR ---
PT BIB EMS FOR BEING NON RESPONSIVE, ONLY TO PAIN STIMULI, FROM POSSIBLE ETOH OR DRUGS. PT WAS FOUND SLEEPING AND NOT RESPONDING LOBBY OF HER RESIDENCE. PT IS MALODOROUS, RESPONDS TO PAINFUL STIMULI, MOVES ALL EXTREMITIES. MUMBLES, NOT ABLE TO UNDERSTAND PT. MD AT BEDSIDE. VS STABLE.
[2019-10-05 12:50] LABS: BASOPHILS # (AUTO) 0.04 x10^3/uL (0-0.1); BASOPHILS % (AUTO) 1 % (0-1); EOSINOPHILS # (AUTO) 0.06 x10^3/uL (0-0.4); EOSINOPHILS % (AUTO) 1 % (1-7); LYMPHOCYTES % (AUTO) 27 % (22-44); MD NO; MEAN CORPUSCULAR HEMOGLOBIN 29.4 pg (27.0-34.8); MEAN CORPUSCULAR HGB CONC 32.9 g/dL (32.4-35.8); MEAN CORPUSCULAR VOLUME 89.4 fL (80-100); MEAN PLATELET VOLUME 10.2 fL (7.4-10.4); MONOCYTES # (AUTO) 0.44 x10^3/uL (0.2-0.8); MONOCYTES % (AUTO) 5 % (2-9); NEUTROPHILS % (AUTO) 67 % (42-75); PLATELET COUNT 301 x10^3/uL (130-400); RED BLOOD COUNT 4.74 x10^6/uL (3.82-5.3); RED CELL DISTRIBUTION WIDTH 16.2 % (9.6-15.2)
[2019-10-05 13:01] LABS: ANION GAP 8 mmol/L (5-15); CALCIUM 8.8 mg/dL (8.5-10.1); CHLORIDE 111 mmol/L (98-107); CREATININE 0.77 mg/dL (0.55-1.02)
--- NOTE | 2019-10-05 13:30 | NUR ---
PT IS SLEEPING, AROUSABLE TO PAIN STIMULI, WILL SIT UP AND CROSS LEGS. WONT HAVE CONVERSTION.
--- NOTE | 2019-10-05 14:40 | NUR ---
PT STILL ONLY AROUSABLE TO PAIN STIMULI, WONT ENGAGE Galileo MARTINEZ.
[2019-10-05 15:01] VITALS: BP 105/68
--- NOTE | 2019-10-05 15:40 | NUR ---
PT STILL SLEEPING, RN TRYING TO AROUSE PT ENOUGH TO HAVE CONVERSATION. PT WILL OPEN EYES, MUMBLE AND GO BACK TO SLEEP. VS STABLE
--- NOTE | 2019-10-05 16:30 | NUR ---
PT AMBULATED TO BATHROOM W STEADY GATE. PT GIVEN PBJ SANDWICH,
--- NOTE | 2019-10-05 17:11 | NUR ---
Patient/Caregiver given discharge instructions and they have confirmed that they understand the instructions. Patient ambulatory with steady gait.
== END 2019-10-05 17:10 | disposition home or self-care (01) ==
LOC: MERGE 16:55 → ED 16:55
DX: G92 Toxic encephalopathy (principal); F10.20 Alcohol dependence, uncomplicated; Y90.0 Blood alcohol level of less than 20 mg/100 ml
CPT/HCPCS: 36415; 80048; 80307; 83735; 85025; 99291

== ENCOUNTER 2019-11-21 07:46 | Emergency (ER) | payer MEDICAID ==
[~2019-11-21] VITALS: Ht 157.5 cm; Wt 69.0 kg
--- NOTE | 2019-11-21 07:55 | NUR ---
nil for triage
[2019-11-21 08:01] VITALS: BP 130/67
--- NOTE | 2019-11-21 08:20 | NUR ---
assumed care of p. pt reports hat she is here for a medication Rx as she states that she just got out of skilled nursing and needs her psych meds. pt has no medical c/o. denies injury. walking around in her oom. no apparen distress. no family a bedside
[2019-11-21] MEDS ORDERED: QUET100T4 PO (08:36)
[2019-11-21] MEDS ORDERED: HYDR50CA PO (08:36)
== END 2019-11-21 08:48 | disposition home or self-care (01) ==
LOC: ED 08:34
DX: F25.8 Other schizoaffective disorders (principal); F17.210 Nicotine dependence, cigarettes, uncomplicated; Z76.0 Encounter for issue of repeat prescription
CPT/HCPCS: 99281

== ENCOUNTER 2019-12-24 05:49 | Emergency (ER) | payer MEDICAID ==
[~2019-12-24] VITALS: Ht 157.5 cm; Wt 68.0 kg
[~2019-12-24 05:49] MED LIST changes: +HYDR50CA PO; +QUET100T4 PO
[2019-12-24 06:00] VITALS: BP 119/74
== END 2019-12-24 07:21 ==
LOC: ED 07:15
DX: F20.9 Schizophrenia, unspecified (principal); Z76.0 Encounter for issue of repeat prescription; E11.9 Type 2 diabetes mellitus without complications; F17.200 Nicotine dependence, unspecified, uncomplicated; Z90.49 Acquired absence of other specified parts of digestive tract
CPT/HCPCS: 99281

== ENCOUNTER 2019-12-26 01:27 | Emergency (ER) | payer MEDICAID ==
[~2019-12-26] VITALS: Ht 157.5 cm; Wt 62.0 kg
[2019-12-26 01:32] VITALS: BP 121/77
== END 2019-12-26 02:35 | disposition home or self-care (01) ==
LOC: ED 01:36
DX: F10.10 Alcohol abuse, uncomplicated (principal); F15.10 Other stimulant abuse, uncomplicated; Z72.9 Problem related to lifestyle, unspecified; E11.9 Type 2 diabetes mellitus without complications; F17.210 Nicotine dependence, cigarettes, uncomplicated; Y90.9 Presence of alcohol in blood, level not specified
CPT/HCPCS: 99283; 99406

== ENCOUNTER 2020-01-26 07:42 | Emergency (ER) | payer MEDICAID ==
[~2020-01-26] VITALS: Ht 162.6 cm; Wt 62.1 kg
[2020-01-26 07:47] VITALS: BP 138/75
--- NOTE | 2020-01-26 08:09 | NUR ---
PT IN HAVING A CONVERSATION, WITH NO ONE THERE. SHE IS ASKING QUESTIONS AND ANSWERING THEM OUT LOUD. PT STATES "YOU THINK YOU ARE GOING TO HEAVEN? NO NO YOU ARENT YOU FUCK"
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
== END 2020-01-26 08:27 | disposition left against medical advice (07) ==
LOC: ED 08:21
DX: F15.959 Other stimulant use, unspecified with stimulant-induced psychotic disorder, unspecified (principal); E11.9 Type 2 diabetes mellitus without complications; F17.200 Nicotine dependence, unspecified, uncomplicated; Z91.14 Patient's other noncompliance with medication regimen; Z90.49 Acquired absence of other specified parts of digestive tract
CPT/HCPCS: 99283

== ENCOUNTER 2020-02-07 07:36 | Emergency (ER) | payer MEDICAID ==
[~2020-02-07] VITALS: Ht 160 cm; Wt 61.3 kg
[2020-02-07] MEDS ORDERED: KETOROLAC 30 MG/1 ML ONE (07:54)
[2020-02-07] MEDS ORDERED: KETOROLAC 30 MG/1 ML IM ONE (08:00)
--- NOTE | 2020-02-07 09:01 | NUR ---
PT UPRIGHT ON GURNEY AWAKE, CALM & WATCHING TV, RESPONDS APPROP TO STAFF, NAD AT THIS TIME, COMFORT MEASURES PROVIDED, CALL LIGHT WITHIN REACH.
--- NOTE | 2020-02-07 09:17 | NUR ---
[facility] AT - ERP AWARE.
[2020-02-07 09:31] VITALS: BP 117/75
--- NOTE | 2020-02-07 09:52 | NUR ---
Patient given gown to wear to [facility] with discharge instructions and they have confirmed that they understand the instructions. Patient chose to wear pants under gown, ambulatory with steady gait.
== END 2020-02-07 09:57 | disposition home or self-care (01) ==
LOC: ED 08:06
DX: S30.811A Abrasion of abdominal wall, initial encounter (principal); R94.31 Abnormal electrocardiogram [ECG] [EKG]; E11.9 Type 2 diabetes mellitus without complications; T76.21XA Adult sexual abuse, suspected, initial encounter; Y93.89 Activity, other specified; Y92.89 Other specified places as the place of occurrence of the external cause; Y99.8 Other external cause status
CPT/HCPCS: 93005; 96372; 99283; J1885; 96361

== ENCOUNTER 2020-02-18 01:25 | Emergency (ER) | payer MEDICAID ==
[~2020-02-18] VITALS: Ht 167.6 cm; Wt 75.0 kg
--- NOTE | 2020-02-18 01:35 | NUR ---
PT BIB [facility] FOR AMS. PT FOUND OUTSIDE OF [facility] UNCONSCIENCE. PT AROUSES TO TOUCH AND LOUD VOICE. PT ADMITS TO ETOH USE BUT WILL NOT ANSWER ANY OTHER QUESTIONS. VSS. FSBG 77. PUPILS DIALATED. PT ALSO HAD A POSSIBLE CRACK PIPE ON HER. MD AT BEDSIDE
[2020-02-18 01:46] LABS: MEAN CORPUSCULAR HEMOGLOBIN 29.1 pg (27.0-34.8); MEAN CORPUSCULAR HGB CONC 32.6 g/dL (32.4-35.8); MEAN CORPUSCULAR VOLUME 89.3 fL (80-100); MEAN PLATELET VOLUME 9.1 fL (7.4-10.4); PLATELET COUNT 305 x10^3/uL (130-400); RED BLOOD COUNT 4.54 x10^6/uL (3.82-5.3); RED CELL DISTRIBUTION WIDTH 16.8 % (9.6-15.2)
[2020-02-18 01:56] LABS: ALANINE AMINOTRANSFERASE 45 U/L (12-78); ALBUMIN 3.5 g/dL (3.4-5.0); ANION GAP 7 mmol/L (5-15); CALCIUM 7.5 mg/dL (8.5-10.1); CHLORIDE 111 mmol/L (98-107)
[2020-02-18 02:00] LABS: BASOPHILS # (AUTO) 0.03 x10^3/uL (0-0.1); BASOPHILS % (AUTO) 0 % (0-1); EOSINOPHILS # (AUTO) 0.08 x10^3/uL (0-0.4); EOSINOPHILS % (AUTO) 1 % (1-7); LYMPHOCYTES # (AUTO) 3.97 x10^3/uL (1-3.4); LYMPHOCYTES % (AUTO) 57 % (22-44); MD SCAN; MONOCYTES % (AUTO) 6 % (2-9); NEUTROPHILS # (AUTO) 2.51 x10^3/uL (1.8-6.8); NEUTROPHILS % (AUTO) 36 % (42-75)
[2020-02-18 02:01] LABS: ALKALINE PHOSPHATASE 85 U/L (45-117); BILIRUBIN,TOTAL 0.3 mg/dL (0.2-1.0); CREATININE 0.63 mg/dL (0.55-1.02); TOTAL PROTEIN 6.6 g/dL (6.4-8.2)
--- NOTE | 2020-02-18 02:33 | NUR ---
PT SLEEPING. EVEN RISE AND FALL OF CHEST OBSERVED. VSS. PIV REMOVED PT DOES NOT NEED IT PER MD/. CALL LIGHT IN REACH
--- NOTE | 2020-02-18 03:46 | NUR ---
PT SLEEPING. EVEN RISE AND FALL OF CHEST OBSERVED. PT OPENS EYES WITH LOUD VOICE AND SHAKING. PT IMMEDIATLY FALL BACK TO SLEEP. CALL LIGHT IN REACH
--- NOTE | 2020-02-18 04:47 | NUR ---
PT WAKES TO LOUD VOICE AND TOUCH AND QUICKLY FALLS BACK TO SLEEP. PT NOT ANSWERING ANY QUESTIONS. VSS. PT STAY UNTIL SOBER. CALL LIGHT IN REACH
--- NOTE | 2020-02-18 05:06 | NUR ---
REPORT TO REGGIE MARTINEZ
--- NOTE | 2020-02-18 05:09 | NUR ---
BS REPORT FROM BRADLEY RN, PT RESTING IN GURNEY, EYES CLOSED, VSS, P/W/D, PT TO REST UNTIL MORE SOBER. CALL LIGHT NEXT TO PT ON BED, GIVEN WARM BALNKET FOR COMFORT, LIGHTS DIMMED. WCTM
--- NOTE | 2020-02-18 06:02 | NUR ---
PT AROUSABLE TO LOUD TALKING, PT ONLY ANSWERED NAME AND BIRTHDAY QUESTIONS BEFORE FALLING BACK ASLEEP. VSS. P/W/D. KECIA. STEVEN. MTTroy
--- NOTE | 2020-02-18 06:52 | NUR ---
Bina russo in ED - 02/18/20 at 0656 by ALFONSO BS REPORT TO PATTI MARTINEZ, PT CARE TRANSFERRED AT THIS TIME. PT RESTING IN [facility], PT IS MORE RESPONSIVE TO VERBAL COMMANDS, ANOx4.
[2020-02-18 06:56] VITALS: BP 105/67
--- NOTE | 2020-02-18 06:57 | NUR ---
Patient given discharge instructions and they have confirmed that they understand the instructions. Patient ambulatory with steady gait. PT GIVEN TAXI VOUCHER. DENIES ADDITIONAL QUESTIONS OR NEEDS AT THIS TIME. NAD, P/W/D, VSS. PT YELLING WHILE IN RESTROOM "[id number] MUÑOZ"
== END 2020-02-18 07:00 | disposition home or self-care (01) ==
LOC: EDBD 01:25 → MERGE 01:25 → ED 06:25
DX: F10.220 Alcohol dependence with intoxication, uncomplicated (principal); G31.2 Degeneration of nervous system due to alcohol; Z72.9 Problem related to lifestyle, unspecified; Y90.9 Presence of alcohol in blood, level not specified
CPT/HCPCS: 36415; 80053; 80307; 85025; 93005; 99285

== ENCOUNTER 2020-03-20 18:50 | Emergency (ER) | payer MEDICAID ==
[~2020-03-20] VITALS: Ht 160 cm; Wt 67.9 kg
[2020-03-20 18:55] VITALS: BP 124/82
[2020-03-20] MEDS ORDERED: QUETIAPINE 100MG TABLET PO ONE (19:30)
[2020-03-20] MEDS ORDERED: ARIPIPRAZOLE 10 MG TABLET PO ONE (19:30)
[2020-03-20] MEDS ORDERED: ARIPIPRAZOLE 5 MG TABLET ONE (19:50)
[2020-03-20] MEDS ORDERED: QUETIAPINE 100MG TABLET ONE (19:50)
[2020-03-20] MEDS ORDERED: LEVETIRACETAM 500 MG TABLET ONE (19:50)
[2020-03-20] MEDS ORDERED: LEVETIRACETAM 500 MG TABLET PO SCH (21:00)
== END 2020-03-20 20:04 | disposition home or self-care (01) ==
LOC: ED 19:49
DX: F20.9 Schizophrenia, unspecified (principal); Z76.0 Encounter for issue of repeat prescription; Z72.9 Problem related to lifestyle, unspecified; E11.9 Type 2 diabetes mellitus without complications; Z90.89 Acquired absence of other organs
CPT/HCPCS: 99284

== ENCOUNTER 2020-04-12 20:05 | Emergency (ER) | payer MEDICAID ==
[~2020-04-12] VITALS: Ht 162.6 cm; Wt 65.0 kg
[2020-04-12 20:08] VITALS: BP 142/82
--- NOTE | 2020-04-12 20:32 | NUR ---
DIRECTOR MONEY: PT NOT IN LOBBY WHEN CALLED TO BE ROOMED
--- NOTE | 2020-04-12 20:55 | NUR ---
UNDERCAR SPECIALIST: PT TO ROOM FROM LOBBY
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
[2020-04-12] MEDS ORDERED: ACETAMINOPHEN 500 MG TABLET ONE (21:10)
[2020-04-12] MEDS ORDERED: IBUPROFEN 200 MG TABLET ONE (21:10)
[2020-04-12] MEDS ORDERED: ACETAMINOPHEN 500 MG TABLET PO ONE (21:30)
[2020-04-12] MEDS ORDERED: IBUPROFEN 200 MG TABLET PO ONE (21:30)
== END 2020-04-12 21:38 | disposition home or self-care (01) ==
LOC: ED 21:31
DX: R51 Headache (principal); M25.521 Pain in right elbow; M25.522 Pain in left elbow; E11.9 Type 2 diabetes mellitus without complications; F17.200 Nicotine dependence, unspecified, uncomplicated; Z90.89 Acquired absence of other organs
CPT/HCPCS: 99283

== ENCOUNTER 2020-04-18 22:15 | Emergency (ER) | payer MEDICAID ==
[~2020-04-18] VITALS: Ht 160 cm; Wt 64.8 kg
[2020-04-18 22:17] VITALS: BP 131/80
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
--- NOTE | 2020-04-19 03:00 | NUR ---
PATIENT RESTING IN BED, EVEN-UNLABORED RESPIRATIONS NOTED. AWAITING [employer] FOR ARRIVAL.
--- NOTE | 2020-04-19 04:11 | NUR ---
[employer] IN ROOM WITH PATIENT COMPLETING INTERVIEW.
--- NOTE | 2020-04-19 04:45 | NUR ---
[employer] HAS TRANSFERRED CASE TO [employer]. [employer] HAS TAKEN OVER PATIENT'S CASE.
--- NOTE | 2020-04-19 05:30 | NUR ---
[facility] IN ROOM REPORTED THAT [facility] WILL TAKE PATIENT. [facility] WILL PROVIDE TRANSPORT FOR PATIENT. PATIENT GIVEN DISCHARGE EDUCATION, VERBALIZED UNDERSTANDING.
[2020-04-19] MEDS ORDERED: ACETAMINOPHEN 500 MG TABLET ONE (05:33)
[2020-04-19] MEDS ORDERED: ACETAMINOPHEN 325 MG TABLET PO ONE (06:00)
[2020-04-19] MEDS ORDERED: ACETAMINOPHEN 500 MG TABLET PO ONE (06:00)
== END 2020-04-19 05:56 | disposition home or self-care (01) ==
LOC: ED 04-19 00:28
DX: T74.21XA Adult sexual abuse, confirmed, initial encounter (principal); F15.10 Other stimulant abuse, uncomplicated; R10.2 Pelvic and perineal pain; Z72.9 Problem related to lifestyle, unspecified; F17.210 Nicotine dependence, cigarettes, uncomplicated; Y04.8XXA Assault by other bodily force, initial encounter; Y93.89 Activity, other specified; Y92.488 Other paved roadways as the place of occurrence of the external cause; Y99.8 Other external cause status; Y07.9 Unspecified perpetrator of maltreatment and neglect
CPT/HCPCS: 99282; 99283

== ENCOUNTER 2020-05-01 10:40 | Emergency (ER) | payer MEDICAID ==
[~2020-05-01] VITALS: Ht 165.1 cm; Wt 62.1 kg
--- NOTE | 2020-05-01 10:43 | NUR ---
[id number]
[2020-05-01 10:47] VITALS: BP 124/81
--- NOTE | 2020-05-01 11:01 | NUR ---
PT REFUSED FOR PROVIDER TO TOUCH HER FACE TO ASSESS ABRASION TO LEFT CHEEK. PT STATING SHE DOESN'T TRUST PEOPLE TOUCHING HER.
--- NOTE | 2020-05-01 11:04 | NUR ---
PT REFUSING WOUND TREATMENT. "I JUST WANT A BANDAID". PT PROVIDED BANDAID AND TO BE DC. PROVIDER AWARE.
--- NOTE | 2020-05-01 11:13 | NUR ---
PT SITTING IN REGISTRATION AREA REFUSING TO LEAVE. SECURITY ESCORTED PT OF PREMISES.
== END 2020-05-01 11:15 | disposition home or self-care (01) ==
LOC: ED 11:02
DX: S01.412A Laceration without foreign body of left cheek and temporomandibular area, initial encounter (principal); E11.9 Type 2 diabetes mellitus without complications; F17.200 Nicotine dependence, unspecified, uncomplicated; X58.XXXA Exposure to other specified factors, initial encounter; Y93.89 Activity, other specified; Y92.098 Other place in other non-institutional residence as the place of occurrence of the external cause; Y99.8 Other external cause status
CPT/HCPCS: 99281

== ENCOUNTER 2020-05-01 21:03 | Emergency (ER) | payer MEDICAID ==
[~2020-05-01] VITALS: Ht 167.6 cm; Wt 61.6 kg
[2020-05-01 21:29] VITALS: BP 116/70
--- NOTE | 2020-05-02 00:26 | NUR ---
PT CALLED FROM LOBBY AT THIS TIME, AMBULATE WITH STEADY GAIT TO ROOM.
--- NOTE | 2020-05-02 01:09 | NUR ---
Pt urine sample sent. Pt returned from imaging. Pt falling asleep on gurney.
[2020-05-02 01:35] LABS: HCG UR SG 1.036 (1.003-1.030)
[2020-05-02 01:36] LABS: MICROSCOPIC INDICATED
--- NOTE | 2020-05-02 01:51 | NUR ---
Pt remains sleeping on gurney. Awaiting micro urine results.
--- NOTE | 2020-05-02 03:01 | NUR ---
Pt alert and resting on gurney. Pt given snacks and taxi voucher. Pt d/c'd to home care. Pt alert, oriented and in NAD. Pt educated on home care and follow-up. Pt VU. Pt ambulatory out of ER.
== END 2020-05-02 03:03 | disposition home or self-care (01) ==
LOC: ED 05-02 01:30
DX: K59.00 Constipation, unspecified (principal); R10.84 Generalized abdominal pain; E11.9 Type 2 diabetes mellitus without complications; F17.200 Nicotine dependence, unspecified, uncomplicated; Z90.49 Acquired absence of other specified parts of digestive tract
CPT/HCPCS: 74021; 81001; 81025; 87086; 87491; 87591; 99284

== ENCOUNTER 2020-06-11 04:08 | Emergency (ER) | payer MEDICAID ==
--- NOTE | 2020-06-11 04:17 | NUR ---
patient uncooperative during triage. states she made a mistake of coming here. also states she just had a bad dream and walked out.
== END 2020-06-11 04:21 | disposition left against medical advice (07) ==
LOC: ED 04:15
DX: F29 Unspecified psychosis not due to a substance or known physiological condition (principal); Z53.21 Procedure and treatment not carried out due to patient leaving prior to being seen by health care provider

== ENCOUNTER 2020-07-15 20:06 | Emergency (ER) | payer MEDICAID ==
[~2020-07-15] VITALS: Ht 157.5 cm; Wt 66.6 kg
[2020-07-15 20:11] VITALS: BP 136/89
--- NOTE | 2020-07-15 21:31 | NUR ---
pt to room from lobby
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
[2020-07-15] MEDS ORDERED: CEFTRIAXONE 250 MG IM ONE (22:00)
[2020-07-15] MEDS ORDERED: AZITHROMYCIN 500 MG TABLET PO ONE (22:00)
[2020-07-15] MEDS ORDERED: AZITHROMYCIN 500 MG TABLET ONE (23:00)
[2020-07-15] MEDS ORDERED: CEFTRIAXONE 250 MG ONE (23:00)
--- NOTE | 2020-07-15 23:26 | NUR ---
URINE COLLECTED AND SENT TO LAB. PER MD PT DOES NOT NEED TO WAIT FOR RESULTS. PT AMB TO DC DESK AT THIS TIME NO QUESTIONS UPON DC
[2020-07-15 23:46] LABS: HCG UR SG 1.014 (1.003-1.030)
[2020-07-15 23:47] LABS: MICROSCOPIC INDICATED
== END 2020-07-15 23:29 | disposition home or self-care (01) ==
LOC: ED 20:36
DX: T74.21XA Adult sexual abuse, confirmed, initial encounter (principal); F15.10 Other stimulant abuse, uncomplicated; Z72.9 Problem related to lifestyle, unspecified; F17.210 Nicotine dependence, cigarettes, uncomplicated; Y04.8XXA Assault by other bodily force, initial encounter; Y93.89 Activity, other specified; Y92.89 Other specified places as the place of occurrence of the external cause; Y99.8 Other external cause status
CPT/HCPCS: 81001; 81025; 87491; 87591; 96372; 99283; 99406; J0696

== ENCOUNTER 2020-08-20 16:59 | Emergency (ER) | payer MEDICAID ==
[~2020-08-20] VITALS: Ht 157.5 cm; Wt 62.8 kg
--- NOTE | 2020-08-20 16:59 | NUR ---
PT TO ROOM 24. DEMANDING MEDICATION, NOT MAKING SENSE. AGITATED
[2020-08-20 17:03] VITALS: BP 118/57
[2020-08-20] MEDS ORDERED: IBUPROFEN 600 MG TABLET ONE (18:17)
[2020-08-20] MEDS ORDERED: IBUPROFEN 600 MG TABLET PO ONE (18:30)
--- NOTE | 2020-08-20 18:40 | NUR ---
PT REFUSED TO LEAVE. SECURITY ESCORTED OFF PREMESIS
== END 2020-08-20 18:43 | disposition home or self-care (01) ==
LOC: ED 17:42
DX: F10.10 Alcohol abuse, uncomplicated (principal); F15.10 Other stimulant abuse, uncomplicated; R45.1 Restlessness and agitation; F60.0 Paranoid personality disorder; Z72.9 Problem related to lifestyle, unspecified; F17.200 Nicotine dependence, unspecified, uncomplicated; F25.9 Schizoaffective disorder, unspecified; G20 Parkinson's disease; F31.9 Bipolar disorder, unspecified; Y90.0 Blood alcohol level of less than 20 mg/100 ml
CPT/HCPCS: 99281

== ENCOUNTER 2020-10-22 09:29 | Emergency (ER) | payer MEDICAID ==
[~2020-10-22] VITALS: Ht 160 cm; Wt 62.6 kg
[2020-10-22 09:32] VITALS: BP 138/119
--- NOTE | 2020-10-22 09:50 | NUR ---
PT POOR HISTORIAN. TEARFUL AND ANXIOUS. STATES SHE FELL TODAY AND NOW HER HEAD HURTS AND SHE NEEDS A HEART TRANSPLANT
--- NOTE | 2020-10-22 10:25 | NUR ---
PT DISGRUNTLED UPON DISCHARGE. AMBULATES FROM ED WITHOUT COMPLICATION. WILL NOT LET THIS NURSE GET A SET OF VITALS.
== END 2020-10-22 10:27 | disposition home or self-care (01) ==
LOC: ED 10:16
DX: F23 Brief psychotic disorder (principal)
CPT/HCPCS: 99281

== ENCOUNTER 2020-11-14 23:03 | Emergency (ER) | payer MEDICAID ==
[~2020-11-14] VITALS: Ht 162.6 cm; Wt 69.7 kg
[2020-11-14 23:31] VITALS: BP 117/48
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
--- NOTE | 2020-11-15 00:25 | NUR ---
pt very disagreeable with dc, states "you guys give me the same paper every time". pt encouraged to follow the directions in the dc papers, and to seek futher treatment from a primary care doctor. pt agrees to dc, ambulated out of unit with steady gait and good balance, respirations even and unlabored.
== END 2020-11-15 00:31 | disposition home or self-care (01) ==
LOC: ED 11-15 00:05
DX: Z00.00 Encounter for general adult medical examination without abnormal findings (principal); Z72.9 Problem related to lifestyle, unspecified
CPT/HCPCS: 99281

== ENCOUNTER 2020-11-24 23:22 | Emergency (ER) | payer MEDICAID ==
[~2020-11-24] VITALS: Ht 167.6 cm; Wt 69.4 kg
[2020-11-24 23:24] VITALS: BP 133/79
--- NOTE | 2020-11-24 23:37 | NUR ---
electrical contacts adjuster: patient talking to self while in triage and when using bathroom in waiting room. RN went to check if patient was okay, as patient was in restroom for a lengthy timeframe after checking in with registration.
--- NOTE | 2020-11-24 23:54 | NUR ---
BREAK RN - PT CAME TO ER TO GET REFILL ON PSYCH MEDS AND PLACEMENT IN A [facility]. PT AYS SHE DOS NOT KNOW WHERE OR HOW TO GET TO A [facility] HERE IN [place]. RN EXPLAINED THAT WE CAN GET THE ADDESS FOR HER AND MAYBE A CAB TO [facility]. PROVIDER RECIEVED A LIST PT HAND WROTE OF THE MEDS SHE TAKES AND WANTS REFILLED.
[2020-11-24] MEDS ORDERED: ZIPRASIDONE 40MG CAPSULE PO STA (23:59)
[2020-11-25] MEDS ORDERED: ZIPRASIDONE 20MG CAPSULE ONE (00:11)
--- NOTE | 2020-11-25 00:23 | NUR ---
RECEIVED BS REPORT FROM JUAN CERON TO ASSUME CARE OF PT. AT THIS TIME. PT. PROVIDED WITH CRACKERS AND JUICE PER REQUEST. DENIES OTHER NEEDS.
--- NOTE | 2020-11-25 00:41 | NUR ---
PT. CALLING [facility] FOR D/C. PT. AMBULATORY WITH STEADY GAIT. NO DISTRESS NOTED.
== END 2020-11-25 00:43 | disposition home or self-care (01) ==
LOC: ED 11-25 00:37
DX: E11.9 Type 2 diabetes mellitus without complications (principal); Z76.0 Encounter for issue of repeat prescription
CPT/HCPCS: 99283

== ENCOUNTER 2020-12-03 17:28 | Emergency (ER) | payer MEDICAID ==
[~2020-12-03] VITALS: Ht 160 cm; Wt 69.8 kg
[~2020-12-03 17:28] MED LIST changes: -DOXY100C2 PO; +DOXY100C5 PO
--- NOTE | 2020-12-03 17:43 | NUR ---
PT AMBULATED TO BR FROM ROOM WITH UPRIGHT STEADY GAIT.
[2020-12-03] MEDS ORDERED: LORazepam 2 MG/ML, 1ML ONE (18:23)
[2020-12-03] MEDS ORDERED: ONDANSETRON 2MG/ML, 2ML ONE (18:23)
[2020-12-03 18:30] VITALS: BP 133/89
[2020-12-03 18:30] LABS: BASOPHILS % (AUTO) 1 % (0-1); EOSINOPHILS % (AUTO) 0 % (1-7); LYMPHOCYTES % (AUTO) 22 % (22-44); MEAN CORPUSCULAR HEMOGLOBIN 30.5 pg (27.0-34.8); MEAN PLATELET VOLUME 8.4 fL (7.4-10.4); MONOCYTES % (AUTO) 8 % (2-9); NEUTROPHILS % (AUTO) 69 % (42-75); PLATELET COUNT 225 x10^3/uL (130-400); RED BLOOD COUNT 4.79 x10^6/uL (3.82-5.3); RED CELL DISTRIBUTION WIDTH 14.9 % (9.6-15.2)
[2020-12-03] MEDS ORDERED: SODIUM CHLORIDE 0.9% 1,000ML IVBOLUS ONE (18:30)
[2020-12-03] MEDS ORDERED: LORazepam 2 MG/ML, 1ML IV ONE (18:30)
[2020-12-03] MEDS ORDERED: SODIUM CHLORIDE FLUSH 10ML SYR IVF ONE (18:30)
[2020-12-03] MEDS ORDERED: MAGNESIUM SULFATE 1 GM, THIAMINE 100 MG, FOLIC ACID 1 MG in SODIUM CHLORIDE 0.9% 1,000 ML IV ONE (18:30)
[2020-12-03] MEDS ORDERED: ONDANSETRON 2MG/ML, 2ML IVPush ONE (18:30)
[2020-12-03 18:43] LABS: ALANINE AMINOTRANSFERASE 236 U/L (12-78); ALBUMIN 3.9 g/dL (3.4-5.0); ANION GAP 7 mmol/L (5-15); CALCIUM 8.9 mg/dL (8.5-10.1); CHLORIDE 103 mmol/L (98-107); CREATININE 0.75 mg/dL (0.55-1.02)
[2020-12-03 18:45] LABS: ALKALINE PHOSPHATASE 148 U/L (45-117); TOTAL PROTEIN 7.7 g/dL (6.4-8.2)
--- NOTE | 2020-12-03 18:52 | NUR ---
BEDSIDE REPORT FROM JUAN SKELTON
--- NOTE | 2020-12-03 19:38 | NUR ---
PT REPORTS SHE IS READY TO LEAVE. REQUESTS IV REMOVED. REFUSING IVF. PT SIGNED AMA PAPERWORK, ADDED TO PAPER CHART. PT AMBULATORY TO THE DISCHARGE DESK WITH A STEADY GAIT. A+OX4.
[2020-12-03 19:44] LABS: ACETONE, SERUM Negative (Negative)
== END 2020-12-03 19:41 | disposition left against medical advice (07) ==
LOC: ED 19:17
DX: R11.2 Nausea with vomiting, unspecified (principal); F10.10 Alcohol abuse, uncomplicated; R00.0 Tachycardia, unspecified; I10 Essential (primary) hypertension; E11.9 Type 2 diabetes mellitus without complications; Z90.89 Acquired absence of other organs; Y90.0 Blood alcohol level of less than 20 mg/100 ml
CPT/HCPCS: 36415; 80053; 80320; 82010; 83690; 85025; 96365; 96375; 99284; J2060; J2405; J3411; J3475; J7030; G0480

== ENCOUNTER 2020-12-05 08:33 | Emergency (ER) | payer MEDICAID ==
[~2020-12-05] VITALS: Ht 160 cm; Wt 65.0 kg
[~2020-12-05 08:33] MED LIST changes: +DOXY100C2 PO; -DOXY100C5 PO
--- NOTE | 2020-12-05 08:43 | NUR ---
BELT LOOP MAKER: PT TO ROOM FROM LOBBY VIA W/C
--- NOTE | 2020-12-05 09:00 | NUR ---
RECEIVED REPORT FROM JUAN MORELOS. PT TO ROOM 17 W/ C/O SZ X 3 TODAY AND HEMATEMESIS 2 DAYS AGO. PT STATES SHE IS SUPPOSED TO BE ON KEPPRA BUT HAS NOT BEEN ON IT FOR TIME UNKNOWN. PT STATES HOMELESSNESS THE SOURCE FOR BEING UNABLE TO TAKE SZ MEDICATION. PT RESTING ON GURNEY. NADN. MONITORS APPLIED. VSS. WARM BLANKET PROVIDED.
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
--- NOTE | 2020-12-05 09:21 | NUR ---
PT RESTING ON GURNEY. NADN. VSS. SAMANTHA BAKER AT BEDSIDE FOR EVAL.
[2020-12-05 09:41] LABS: BASOPHILS % (AUTO) 1 % (0-1); EOSINOPHILS % (AUTO) 1 % (1-7); LYMPHOCYTES % (AUTO) 25 % (22-44); MEAN CORPUSCULAR HEMOGLOBIN 30.3 pg (27.0-34.8); MEAN PLATELET VOLUME 8.9 fL (7.4-10.4); MONOCYTES % (AUTO) 8 % (2-9); NEUTROPHILS % (AUTO) 65 % (42-75); PLATELET COUNT 184 x10^3/uL (130-400); RED BLOOD COUNT 4.59 x10^6/uL (3.82-5.3); RED CELL DISTRIBUTION WIDTH 14.9 % (9.6-15.2)
[2020-12-05 09:42] LABS: MD NO
[2020-12-05 09:53] LABS: ALANINE AMINOTRANSFERASE 189 U/L (12-78); ALBUMIN 3.7 g/dL (3.4-5.0); ANION GAP 7 mmol/L (5-15); CALCIUM 8.8 mg/dL (8.5-10.1); CHLORIDE 105 mmol/L (98-107); CREATININE 0.53 mg/dL (0.55-1.02)
[2020-12-05 09:56] LABS: ALKALINE PHOSPHATASE 128 U/L (45-117); BILIRUBIN,TOTAL 0.5 mg/dL (0.2-1.0); TOTAL PROTEIN 7.4 g/dL (6.4-8.2)
[2020-12-05 10:19] VITALS: BP 125/97
--- NOTE | 2020-12-05 10:19 | NUR ---
PT RESTING ON GURNEY. NADN. RODRIGUEZ.
[2020-12-05] MEDS ORDERED: LEVETIRACETAM 500 MG TABLET ONE (10:48)
[2020-12-05] MEDS ORDERED: LEVETIRACETAM 500 MG TABLET PO ONE (11:00)
== END 2020-12-05 11:10 | disposition home or self-care (01) ==
LOC: ED 10:43
DX: F10.20 Alcohol dependence, uncomplicated (principal); Z76.0 Encounter for issue of repeat prescription; Z72.9 Problem related to lifestyle, unspecified; F17.210 Nicotine dependence, cigarettes, uncomplicated; I10 Essential (primary) hypertension; E11.9 Type 2 diabetes mellitus without complications; Y90.0 Blood alcohol level of less than 20 mg/100 ml
CPT/HCPCS: 36415; 80053; 85025; 99283; 99406

== ENCOUNTER 2020-12-22 08:22 | Emergency (ER) | payer MEDICAID ==
[~2020-12-22] VITALS: Ht 160 cm; Wt 65.6 kg
[2020-12-22 08:30] VITALS: BP 137/89
== END 2020-12-22 08:44 | disposition left against medical advice (07) ==
LOC: ED 08:38
DX: R56.9 Unspecified convulsions (principal); Z53.21 Procedure and treatment not carried out due to patient leaving prior to being seen by health care provider

== ENCOUNTER 2021-01-12 03:13 | Emergency (ER) | payer MEDICAID ==
[~2021-01-12] VITALS: Ht 162.6 cm; Wt 66.6 kg
[2021-01-12] MEDS ORDERED: ONDANSETRON ODT 4 MG PO ONE (03:30)
[2021-01-12] MEDS ORDERED: LORazepam 1MG TABLET PO ONE (03:30)
[2021-01-12] MEDS ORDERED: OLANZAPINE 10 MG TABLET PO ONE (03:30)
[2021-01-12] MEDS ORDERED: ONDANSETRON ODT 4 MG ONE (03:53)
[2021-01-12] MEDS ORDERED: LORazepam 1MG TABLET ONE (03:53)
[2021-01-12] MEDS ORDERED: OLANZAPINE 10 MG TABLET ONE (03:53)
--- NOTE | 2021-01-12 03:58 | NUR ---
medicated per emar
[2021-01-12 04:22] VITALS: BP 139/80
--- NOTE | 2021-01-12 04:24 | NUR ---
With reassessment "i feel a little better." Provided with taxi voucher, asked to abstain from illicits and f/u with community resources for housing
== END 2021-01-12 04:39 | disposition home or self-care (01) ==
LOC: ED 03:47
DX: F15.150 Other stimulant abuse with stimulant-induced psychotic disorder with delusions (principal); Z72.9 Problem related to lifestyle, unspecified; F20.9 Schizophrenia, unspecified; E11.9 Type 2 diabetes mellitus without complications
CPT/HCPCS: 99284; Q0162

== ENCOUNTER 2021-01-15 05:18 | Emergency (ER) | payer MEDICAID ==
[~2021-01-15] VITALS: Ht 162.6 cm; Wt 67.0 kg
[2021-01-15 05:20] VITALS: BP 128/78
[2021-01-15] MEDS ORDERED: ONDANSETRON ODT 4 MG PO ONE (05:30)
--- NOTE | 2021-01-15 05:47 | NUR ---
pt shouting at no one in the room, attempted to calm pt. pt continues to rant & shout. security called/ at bs.
[2021-01-15] MEDS ORDERED: ONDANSETRON ODT 4 MG ONE (05:55)
[2021-01-15] MEDS ORDERED: HALOPERIDOL 5 MG/ML ONE (05:55)
[2021-01-15] MEDS ORDERED: HALOPERIDOL 5 MG/ML IM ONE (06:00)
--- NOTE | 2021-01-15 06:03 | NUR ---
pt walking around room naked, pt directed to pt clothes back on. pt cooperating, continues to talk to self. refusing zofran, eating a pb&j, pt given haldol, tolerated well. will ctm.
[2021-01-15 06:17] LABS: BASOPHILS % (AUTO) 1 % (0-1); EOSINOPHILS % (AUTO) 2 % (1-7); LYMPHOCYTES % (AUTO) 28 % (22-44); MEAN CORPUSCULAR HEMOGLOBIN 30.3 pg (27.0-34.8); MEAN CORPUSCULAR HGB CONC 33.6 g/dL (32.4-35.8); MEAN PLATELET VOLUME 8.2 fL (7.4-10.4); MONOCYTES % (AUTO) 7 % (2-9); NEUTROPHILS % (AUTO) 62 % (42-75); PLATELET COUNT 203 x10^3/uL (130-400); RED BLOOD COUNT 4.61 x10^6/uL (3.82-5.3); RED CELL DISTRIBUTION WIDTH 14.6 % (9.6-15.2)
[2021-01-15 06:18] LABS: MD NO
[2021-01-15 06:26] LABS: ALBUMIN 3.6 g/dL (3.4-5.0); ANION GAP 6 mmol/L (5-15); CHLORIDE 105 mmol/L (98-107); CREATININE 0.57 mg/dL (0.55-1.02)
--- NOTE | 2021-01-15 06:28 | NUR ---
pt calm, laying on cart. will ctm.
[2021-01-15 06:33] LABS: SALICYLATE LEVEL 2.4 mg/dL (2.8-20.0)
--- NOTE | 2021-01-15 07:19 | NUR ---
PT SLEEPING. REPORT FROM YULIANA
--- NOTE | 2021-01-15 09:10 | NUR ---
PT SLEEPING, SIDE RAILS IN PLACE.
--- NOTE | 2021-01-15 10:33 | NUR ---
PT AMBULATED TO BATHROOM
[2021-01-15 10:40] LABS: AMPHETAMINE SCREEN, URINE Positive (Negative); BARBITURATE SCREEN, URINE Negative (Negative); BENZODIAZEPINE SCREEN, URINE Negative (Negative); CANNABINOID SCREEN, URINE Negative (Negative); COCAINE SCREEN, URINE Negative (Negative); METHADONE SCREEN, URINE Negative (Negative); OPIATE SCREEN, URINE Negative (Negative)
--- NOTE | 2021-01-15 13:36 | NUR ---
Patient given discharge instructions and they have confirmed that they understand the instructions. Patient ambulatory with steady gait.
== END 2021-01-15 13:41 | disposition home or self-care (01) ==
LOC: ED 05:49
DX: F44.9 Dissociative and conversion disorder, unspecified (principal); F15.10 Other stimulant abuse, uncomplicated; I10 Essential (primary) hypertension; E11.9 Type 2 diabetes mellitus without complications; Z90.89 Acquired absence of other organs; F17.200 Nicotine dependence, unspecified, uncomplicated; Z91.14 Patient's other noncompliance with medication regimen
CPT/HCPCS: 36415; 80048; 80299; 80307; 80320; 80329; 82040; 84703; 85025; 96372; 99283; J1630; G0480

== ENCOUNTER 2021-01-19 04:54 | Observation (INO) | payer MEDICAID ==
[~2021-01-19] VITALS: Ht 165.1 cm; Wt 66.4 kg
--- NOTE | 2021-01-19 04:56 | NUR ---
NIL X 1 WHEN CALLED FOR TRIAGE.
--- NOTE | 2021-01-19 05:25 | NUR ---
Pt placed in secure room, belongins removed, provided warm blanket and juice, WCBRIA.
[2021-01-19] MEDS ORDERED: LORazepam 1MG TABLET PO ONE (06:00)
[2021-01-19 06:13] LABS: BASOPHILS % (AUTO) 1 % (0-1); EOSINOPHILS % (AUTO) 3 % (1-7); LYMPHOCYTES % (AUTO) 43 % (22-44); MD NO; MEAN CORPUSCULAR HEMOGLOBIN 30.4 pg (27.0-34.8); MEAN CORPUSCULAR HGB CONC 33.5 g/dL (32.4-35.8); MEAN PLATELET VOLUME 8.4 fL (7.4-10.4); MONOCYTES % (AUTO) 9 % (2-9); NEUTROPHILS % (AUTO) 44 % (42-75); PLATELET COUNT 156 x10^3/uL (130-400); RED BLOOD COUNT 4.33 x10^6/uL (3.82-5.3); RED CELL DISTRIBUTION WIDTH 14.6 % (9.6-15.2)
[2021-01-19] MEDS ORDERED: LORazepam 1MG TABLET ONE (06:15)
[2021-01-19 06:24] LABS: AMPHETAMINE SCREEN, URINE Positive (Negative); BARBITURATE SCREEN, URINE Negative (Negative); BENZODIAZEPINE SCREEN, URINE Negative (Negative); CANNABINOID SCREEN, URINE Negative (Negative); COCAINE SCREEN, URINE Negative (Negative); METHADONE SCREEN, URINE Negative (Negative); OPIATE SCREEN, URINE Negative (Negative)
[2021-01-19 06:25] LABS: ALBUMIN 3.3 g/dL (3.4-5.0); ANION GAP 8 mmol/L (5-15); CALCIUM 7.4 mg/dL (8.5-10.1); CHLORIDE 108 mmol/L (98-107); SALICYLATE LEVEL 3.2 mg/dL (2.8-20.0)
[2021-01-19 06:30] LABS: ALANINE AMINOTRANSFERASE 54 U/L (12-78); ALKALINE PHOSPHATASE 83 U/L (45-117); BILIRUBIN,TOTAL 0.2 mg/dL (0.2-1.0); CREATININE 0.52 mg/dL (0.55-1.02); TOTAL PROTEIN 6.5 g/dL (6.4-8.2)
--- NOTE | 2021-01-19 06:32 | NUR ---
Pt walked out of room and yelled "I need an IV right now or I'm going to , I need to get blood to my liver" pt made aware that she can not have an IV without an order.
[2021-01-19] MEDS ORDERED: ZIPRASIDONE 20 MG INJ IM ONE ×2 (06:36→07:00)
--- NOTE | 2021-01-19 06:53 | NUR ---
Pt again out of room and in hallway swearing and demanding an IV, pt shouting "911! 911! 911!", recieved orders for geadon and medicated per orders. Pt now resting in bed with eyes closed.
--- NOTE | 2021-01-19 07:00 | NUR ---
assumed care of pt. report from Karen MARTINEZ and Lawanda MARTINEZ pt here for psych complaints. per report, pt has been very agitated and talking to herself. no specific c/o SI/HI. pt was agitated and screaming, was medicated. pt now sleeping in posiiton of comfort with ligghts dimmed. respirations even and unlabored. no apaprent respiratory distress. no family at bedside. room secured and belonings have been locked up by previous RN for pt safety
--- NOTE | 2021-01-19 07:05 | NUR ---
pt is not currently on a legal hold, pending psych eval
--- NOTE | 2021-01-19 07:15 | NUR ---
pt continues sleeping. sitter present for patient safety
--- NOTE | 2021-01-19 08:08 | NUR ---
no changes. pt resting in positon of comfort. no apparent resp. distress sitter present for safety report to Robbin MARTINEZ for lunch break
--- NOTE | 2021-01-19 09:00 | NUR ---
pt continues sleeping. resting in posiiton of comfort. respirations even and unlabored. no apparent distress. room secure. sitter present for safety
--- NOTE | 2021-01-19 10:06 | NUR ---
no changes. pt resting with eyes closed. no apparent distress room secure. sitter present for safety
--- NOTE | 2021-01-19 11:08 | NUR ---
pt continues sleeping in position of comfort. respirations even and unlabored room secure. sitter present for safety
--- NOTE | 2021-01-19 11:17 | NUR ---
meal tray ordered
[2021-01-19 11:25] VITALS: BP 124/76
--- NOTE | 2021-01-19 11:26 | NUR ---
pt awake and requesting food. pt updated on POC
--- NOTE | 2021-01-19 12:30 | NUR ---
no changes. pt resting with eyes closed. no apparent distress room secure. sitter present for safety
--- NOTE | 2021-01-19 13:16 | NUR ---
Errol, psych ALTERNATIVE ENERGY ENGINEER aat bedside for eval meal tray delivered
--- NOTE | 2021-01-19 13:23 | NUR ---
report to Prince MARTINEZ
== END 2021-01-19 15:03 | disposition home or self-care (01) ==
LOC: ED 05:13 → EDIP 09:04
PROVIDERS: ADMIT Emergency Medicine; ATTEND Emergency Medicine
DX: F25.9 Schizoaffective disorder, unspecified (principal); F32.9 Major depressive disorder, single episode, unspecified; F10.20 Alcohol dependence, uncomplicated; F15.10 Other stimulant abuse, uncomplicated; F12.10 Cannabis abuse, uncomplicated; F17.210 Nicotine dependence, cigarettes, uncomplicated; I10 Essential (primary) hypertension; G40.909 Epilepsy, unspecified, not intractable, without status epilepticus; Z87.440 Personal history of urinary (tract) infections; Z63.8 Other specified problems related to primary support group; Z79.899 Other long term (current) drug therapy; Z91.14 Patient's other noncompliance with medication regimen
CPT/HCPCS: 36415; 80053; 80299; 80307; 80320; 80329; 84703; 85025; 96372; 99284; G0378; J3486; G0480